=== PATIENT | female | born 1995 | race Two or more races ===

== ENCOUNTER 2018-12-19 20:57 | Emergency (ER) | payer BC ==
[~2018-12-19] VITALS: Ht 152.4 cm; Wt 98.6 kg
[2018-12-19 21:07] VITALS: Ht 152.4 cm; Wt 98.6 kg
[2018-12-19] MEDS ORDERED: VIBRAMYCIN 100100 MG PO (21:55)
[2018-12-19] MEDS ORDERED: VOLTAREN75 MG PO (21:55)
[2018-12-19 22:52] VITALS: BP 137/83
== END 2018-12-19 22:53 | disposition home or self-care (01) ==
LOC: D.ER 20:57
DX: L03.115 Cellulitis of right lower limb (principal)